=== PATIENT | male | born 1990 | race Caucasian/White ===

== ENCOUNTER 2016-10-18 22:50 | Emergency (ER) | payer OTHER ==
[~2016-10-18] VITALS: Ht 180.3 cm; Wt 74.8 kg
[2016-10-18 23:13] LABS: ABSOLUTE NEUTROPHILS 3.9 thou/uL (1.4-8.2); BASOPHILS 0.7 % (0.0-2.0); EOSINOPHILS 6.2 % (0.0-3.0); HEMATOCRIT 46.3 % (42.0-52.0); HEMOGLOBIN 16.1 gm/dL (14.0-18.0); LYMPHOCYTES 42.4 % (24.0-44.0); MCH 30.4 pg (26.0-34.0); MCHC 34.7 g/dL (28.0-37.0); MCV 87.7 fL (80.0-100.0); MONOCYTES 8.1 % (1.0-8.0); PLATELET COUNT 221 thou/uL (150-400); POLYS 42.6 % (36.0-66.0); RBC 5.28 mil/uL (4.50-6.00); RDW 12.7 % (10.5-14.5); WBC 9.2 thou/uL (4.0-11.0)
[2016-10-18 23:14] LABS: MANUAL DIFF NO
[2016-10-18 23:20] LABS: CALCIUM 8.8 mg/dL (8.5-10.1); CREATININE 1.1 mg/dL (0.7-1.3)
[2016-10-18 23:25] LABS: ALBUMIN 4.4 g/dL (3.4-5.0); TOTAL BILIRUBIN 0.4 mg/dL (<0.1-1.0); TOTAL PROTEIN 7.6 g/dL (6.4-8.2)
[2016-10-18] MEDS ORDERED: FLONASE 0.05%50 MCG NASAL (23:44)
[2016-10-18] MEDS ORDERED: ZYRTEC10 M2 PO (23:44)
[2016-10-18] MEDS ORDERED: ALBUTEROL2.5 MG/0.1 INH (23:44)
[2016-10-19] MEDS ORDERED: PRILOSEC 20 MG20 MG PO (01:17)
[2016-10-19 01:35] VITALS: BP 132/72
== END 2016-10-19 01:36 | disposition home or self-care (01) ==
LOC: ER 22:50
PROVIDERS: Emergency Medicine
DX: R11.2 Nausea with vomiting, unspecified (principal); R10.13 Epigastric pain; J45.909 Unspecified asthma, uncomplicated; Z88.6 Allergy status to analgesic agent